=== PATIENT | male | born 1990 | race Caucasian/White ===

== ENCOUNTER 2018-05-28 18:27 | Inpatient (IN) | payer MEDICARE, MEDICAID ==
[~2018-05-28] VITALS: Ht 170.2 cm; Wt 52.6 kg
[~2018-05-28 18:27] MED LIST: DEPAK5 PO; DIVA250T4 PO; QUET400T PO
[2018-05-28] MEDS ORDERED: ONDANSETRON HCL 4MG/2ML INJ IV STA (18:39)
[2018-05-28] MEDS ORDERED: PIPERACILLIN/TAZ 3.375G PREMIX 50 ML IV ONE (18:45)
[2018-05-28] MEDS ORDERED: SODIUM CHLORIDE 0.9% 1000ML BAG (SEPSIS BOLUS) IV ONE (18:45)
[2018-05-28 19:34] LABS: HEMATOCRIT. 25.2 % (42.0-52.0); HEMOGLOBIN. 8.3 g/dL (14.0-18.0); MEAN CORPUSCULAR HEMOGLOBIN 30.8 pg (28.0-32.0); MEAN PLATELET VOLUME 7.5 fl (7.4-10.4); PLATELET 391 x1000/uL (130-400); RED CELL DISTRIBUTION WIDTH 21.1 % (11.6-14.6)
[2018-05-28 19:39] LABS: CHLORIDE 100 mEq/L (98-107)
[2018-05-28 19:40] LABS: INR 1.5; PROTHROMBIN TIME 15.1 sec (9.1-11.1)
[2018-05-28 20:32] LABS: PLATELET ESTIMATE NORMAL
[2018-05-28] MEDS ORDERED: VANCOMYCIN 1 G PREMIX 200 ML IV STA (21:48)
[2018-05-28] MEDS ORDERED: SULFAMETHOXAZOLE/TRIMETHOPRIM 800/160MG TABLET PO ONE (22:00)
[2018-05-28 22:02] LABS: CLARITY URINE CLEAR (CLEAR); COLOR URINE DARK YELLOW (YELLOW); KETONES URINE TRACE (NEGATIVE); LEUKOCYTE ESTERASE URINE NEGATIVE (NEGATIVE); NITRITE URINE NEGATIVE (NEGATIVE); OCCULT BLOOD URINE NEGATIVE (NEGATIVE); PH URINE 5.5 (4.5-8.0); PROTEIN URINE 2+ (NEGATIVE); SPECIFIC GRAVITY URINE 1.032 (1.005-1.030)
[2018-05-29 09:30] VITALS: BP 113/62
[2018-05-29] MEDS ORDERED: HYDROCODONE/ACETAMINOPHEN 5/325MG TABLET PO PRN (09:45)
[2018-05-29] MEDS ORDERED: GUAIFENESIN-DM 200MG-20MG/10ML UDC PO PRN (09:45)
[2018-05-29] MEDS ORDERED: ONDANSETRON HCL 4MG/2ML INJ IV PRN (09:45)
[2018-05-29] MEDS ORDERED: IPRATROPIUM/ALBUTEROL 0.5-3(2.5)MG/3ML NEB HHN PRN (09:45)
[2018-05-29 10:00] VITALS: BP 113/62
[2018-05-29] MEDS ORDERED: VANCOMYCIN 1250MG in DEXTROSE 5% WATER 250ML IV SCH (11:30)
[2018-05-29 11:47] VITALS: BP 110/71
[2018-05-29] MEDS ORDERED: GUAIFENESIN 600MG ER TABLET PO SCH (12:00)
[2018-05-29] MEDS ORDERED: PIPERACILLIN/TAZ 3.375G PREMIX 50 ML IV SCH (12:00)
[2018-05-29] MEDS: IPRATROPIUM/ALBUTEROL 0.5-3(2.5)MG/3ML NEB HHN SCH (13:14)
[2018-05-29] MEDS: SODIUM CHLORIDE 0.9% 1,000 ML IV SCH (13:43)
[2018-05-29] MEDS: MIDODRINE HCL 5MG TABLET PO SCH ×2 (13:44→16:34)
[2018-05-29 15:09] LABS: TOTAL IRON BINDING CAPACITY 123 ug/dL (250-450)
[2018-05-29 15:45] VITALS: BP 100/54
[2018-05-29] MEDS: NICOTINE 14MG PATCH TD SCH (16:00)
[2018-05-29] MEDS: PIPERACILLIN/TAZ 3.375G PREMIX 50 ML IV SCH (16:18)
[2018-05-29] MEDS ORDERED: SODIUM CHLORIDE 10% FOR INH 15ML VIAL NEB INH NR (17:00)
[2018-05-29 20:00] VITALS: BP 89/41
[2018-05-29] MEDS: VANCOMYCIN 1500MG in DEXTROSE 5% WATER 250ML IV SCH (22:00)
[2018-05-30] MEDS: ACETYLCYSTEINE 100MG/ML 10% VIAL 4ML INH SCH (00:20)
[2018-05-30] MEDS: IPRATROPIUM/ALBUTEROL 0.5-3(2.5)MG/3ML NEB HHN SCH ×3 (00:22→22:36)
[2018-05-30] MEDS: SODIUM CHLORIDE 0.9% 1,000 ML IV SCH ×2 (01:20→14:40)
[2018-05-30 04:00] VITALS: BP 81/47
[2018-05-30] MEDS: VANCOMYCIN 1500MG in DEXTROSE 5% WATER 250ML IV SCH ×3 (06:00→21:36)
[2018-05-30] MEDS: PIPERACILLIN/TAZ 3.375G PREMIX 50 ML IV SCH ×4 (06:00→18:00)
[2018-05-30 08:00] VITALS: BP 95/39
[2018-05-30] MEDS: ACETAMINOPHEN 325MG TABLET PO PRN (08:20)
[2018-05-30] MEDS: MIDODRINE HCL 5MG TABLET PO SCH ×3 (08:21→17:00)
[2018-05-30] MEDS: NICOTINE 14MG PATCH TD SCH (08:21)
[2018-05-30 09:33] LABS: HEMATOCRIT. 30.8 % (42.0-52.0); HEMOGLOBIN. 9.8 g/dL (14.0-18.0); MEAN CORPUSCULAR HEMOGLOBIN 30.3 pg (28.0-32.0); MEAN CORPUSCULAR VOLUME 94.9 fL (80.0-94.0); MEAN PLATELET VOLUME 7.6 fl (7.4-10.4); PLATELET 564 x1000/uL (130-400); RED BLOOD CELL COUNT 3.24 mill/uL (4.7-6.1); RED CELL DISTRIBUTION WIDTH 21.1 % (11.6-14.6)
[2018-05-30 09:39] LABS: CHLORIDE 95 mEq/L (98-107)
[2018-05-30 10:27] VITALS: BP 80/16
[2018-05-30 12:00] VITALS: BP 92/57
[2018-05-30 12:18] LABS: PLATELET ESTIMATE INCREASED
[2018-05-30 16:00] VITALS: BP 115/94
[2018-05-30] MEDS: CEFEPIME HCL 1000MG/VIAL INJ IM SCH (16:46)
[2018-05-30 20:00] VITALS: BP 85/37
[2018-05-30] MEDS: DOXYCYCLINE HYCLATE 100MG CAPSULE PO SCH (20:24)
[2018-05-31] VITALS: BP 80/16
[2018-05-31] MEDS: ACETAMINOPHEN 325MG TABLET PO PRN (00:32)
[2018-05-31] MEDS: IPRATROPIUM/ALBUTEROL 0.5-3(2.5)MG/3ML NEB HHN SCH ×6 (00:56→21:00)
[2018-05-31] MEDS: ACETYLCYSTEINE 100MG/ML 10% VIAL 4ML INH SCH ×3 (00:56→17:29)
[2018-05-31] MEDS: SODIUM CHLORIDE 0.9% 1,000 ML IV SCH ×2 (04:00→17:20)
[2018-05-31] MEDS: PIPERACILLIN/TAZ 3.375G PREMIX 50 ML IV SCH ×3 (06:00→18:00)
[2018-05-31] MEDS: VANCOMYCIN 1500MG in DEXTROSE 5% WATER 250ML IV SCH ×3 (06:00→22:00)
[2018-05-31] MEDS: NICOTINE 14MG PATCH TD SCH (09:00)
[2018-05-31] MEDS: MIDODRINE HCL 5MG TABLET PO SCH ×3 (09:00→17:00)
[2018-05-31] MEDS: CEFEPIME HCL 1000MG/VIAL INJ IM SCH (09:00)
[2018-05-31 09:09] LABS: ABSOLUTE EOSINOPHILS 0.1 x10E3/uL (0.0-0.4); ABSOLUTE LYMPHOCYTES 0.2 x10E3/uL (0.7-3.1); ABSOLUTE MONOCYTES 0.1 x10E3/uL (0.1-0.9); ABSOLUTE NEUTROPHILS 1.6 x10E3/uL (1.4-7.0); BASOPHILS 0 % (Not Estab.); HEMATOCRIT 30.9 % (37.5-51.0); HEMATOLOGY COMMENT Note: (.); HEMOGLOBIN 9.2 g/dL (13.0-17.7); IMMATURE GRANULOCYTES 1 % (Not Estab.); LYMPHOCYTES 9 % (Not Estab.); MEAN CORPUSCULAR HEMOGLOBIN 29.7 pg (26.6-33.0); MEAN CORPUSCULAR HGB CONC. 29.8 g/dL (31.5-35.7); MEAN CORPUSCULAR VOLUME 100 fL (79-97); MONOCYTES 5 % (Not Estab.); NEUTROPHILS 82 % (Not Estab.); PLATELETS 459 x10E3/uL (150-379); RED CELL DISTRIBUTION WIDTH 19.6 % (12.3-15.4); WBC 1.9 x10E3/uL (3.4-10.8)
[2018-05-31] MEDS: DOXYCYCLINE HYCLATE 100MG CAPSULE PO SCH ×2 (17:28→21:57)
[2018-05-31] MEDS: ATOVAQUONE 750 MG/5 ML ORAL.SUSP PO SCH (17:28)
[2018-05-31 17:44] LABS: HEMATOCRIT. 32.6 % (42.0-52.0); HEMOGLOBIN. 10.7 g/dL (14.0-18.0); MEAN CORPUSCULAR HEMOGLOBIN 30.8 pg (28.0-32.0); MEAN CORPUSCULAR VOLUME 94.4 fL (80.0-94.0); MEAN PLATELET VOLUME 7.6 fl (7.4-10.4); PLATELET 545 x1000/uL (130-400); RED BLOOD CELL COUNT 3.46 mill/uL (4.7-6.1); RED CELL DISTRIBUTION WIDTH 20.8 % (11.6-14.6)
[2018-05-31 17:54] LABS: CHLORIDE 95 mEq/L (98-107)
[2018-05-31 20:00] VITALS: BP 92/28
[2018-05-31 20:42] LABS: NUCLEATED RED BLOOD CELLS 2 /100 WBC; PLATELET ESTIMATE INCREASED
[2018-06-01] VITALS: BP 85/41
[2018-06-01] MEDS: ACETYLCYSTEINE 100MG/ML 10% VIAL 4ML INH SCH ×2 (00:35→08:23)
[2018-06-01 04:00] VITALS: BP 88/45
[2018-06-01] MEDS: IPRATROPIUM/ALBUTEROL 0.5-3(2.5)MG/3ML NEB HHN SCH ×4 (04:45→12:00)
[2018-06-01] MEDS: ACETAMINOPHEN 325MG TABLET PO PRN (05:44)
[2018-06-01] MEDS: PIPERACILLIN/TAZ 3.375G PREMIX 50 ML IV SCH ×3 (05:51→12:00)
[2018-06-01] MEDS: VANCOMYCIN 1500MG in DEXTROSE 5% WATER 250ML IV SCH (05:51)
[2018-06-01 06:47] LABS: BASOPHILS % 0.3 % (0.0-2.0); EOSINOPHILS % 0.5 % (0.0-5.0); HEMATOCRIT. 28.5 % (42.0-52.0); HEMOGLOBIN. 9.3 g/dL (14.0-18.0); LYMPHOCYTES % 8.8 % (20.0-50.0); MEAN CORPUSCULAR HEMOGLOBIN 30.5 pg (28.0-32.0); MEAN CORPUSCULAR VOLUME 93.4 fL (80.0-94.0); MEAN PLATELET VOLUME 7.5 fl (7.4-10.4); MONOCYTES % 2.5 % (2.0-8.0); NEUTROPHILS % 87.9 % (40.0-76.0); PLATELET 417 x1000/uL (130-400); RED BLOOD CELL COUNT 3.05 mill/uL (4.7-6.1); RED CELL DISTRIBUTION WIDTH 21.2 % (11.6-14.6)
[2018-06-01 07:00] VITALS: BP 87/53
[2018-06-01 07:21] LABS: CHLORIDE 96 mEq/L (98-107)
[2018-06-01] MEDS: ATOVAQUONE 750 MG/5 ML ORAL.SUSP PO SCH ×2 (07:50→09:14)
[2018-06-01 08:00] VITALS: BP 87/53
[2018-06-01] MEDS: CEFEPIME HCL 1000MG/VIAL INJ IM SCH ×2 (09:00→09:14)
[2018-06-01] MEDS: MIDODRINE HCL 5MG TABLET PO SCH ×3 (09:00→12:20)
[2018-06-01] MEDS: NICOTINE 14MG PATCH TD SCH ×2 (09:00→09:15)
[2018-06-01] MEDS: DOXYCYCLINE HYCLATE 100MG CAPSULE PO SCH ×2 (09:00→09:15)
[2018-06-01 12:00] VITALS: BP 111/57
[2018-06-01] MEDS ORDERED: LORAZEPAM 2MG/ML CPJ IV PRN (12:45)
[2018-06-01] MEDS ORDERED: MORPHINE SULFATE 250 MG in DEXT 5% WATER 240 ML IV PRN (13:00)
[2018-06-01 20:00] VITALS: BP 103/44
[2018-06-02] VITALS: BP 111/49
[2018-06-02] MEDS: ACETAMINOPHEN 325MG TABLET PO PRN (02:18)
[2018-06-02 04:00] VITALS: BP 99/51
[2018-06-02 09:06] LABS: ABSOLUTE EOSINOPHILS 0.1 x10E3/uL (0.0-0.4); ABSOLUTE LYMPHOCYTES 0.2 x10E3/uL (0.7-3.1); ABSOLUTE MONOCYTES 0.1 x10E3/uL (0.1-0.9); ABSOLUTE NEUTROPHILS 1.4 x10E3/uL (1.4-7.0); BASOPHILS 0 % (Not Estab.); HEMATOCRIT 35.4 % (37.5-51.0); HEMATOLOGY COMMENT Note: (.); HEMOGLOBIN 10.7 g/dL (13.0-17.7); LYMPHOCYTES 13 % (Not Estab.); MEAN CORPUSCULAR HEMOGLOBIN 30.3 pg (26.6-33.0); MEAN CORPUSCULAR HGB CONC. 30.2 g/dL (31.5-35.7); MEAN CORPUSCULAR VOLUME 100 fL (79-97); MONOCYTES 4 % (Not Estab.); NEUTROPHILS 57 % (Not Estab.); NUCLEATED RBC 5 % (0 - 0); PLATELETS 616 x10E3/uL (150-379); RBC 3.53 x10E6/uL (4.14-5.80); RED CELL DISTRIBUTION WIDTH 19.6 % (12.3-15.4); WBC 1.9 x10E3/uL (3.4-10.8)
[2018-06-02 10:10] LABS: % CD 3 POS. LYMPHOCYTES 69.9 % (57.5-86.2); % CD 4 POS. LYMPHOCYTES 7.7 % (30.8-58.5); % CD 8 POS. LYMPH 60.3 % (12.0-35.5); ABSOLUTE CD 3 140 /uL (622-2402); ABSOLUTE CD 4 HELPER 15 /uL (359-1519); ABSOLUTE CD 8 SUPPRESSOR 121 /uL (109-897); CD4/CD8 RATIO 0.13 (0.92-3.72)
[2018-06-02] MEDS ORDERED: MORPHINE SULFATE 10 MG/ML CPJ IM PRN (11:45)
[2018-06-02] MEDS ORDERED: HYDROMORPHONE HCL/PF 2MG/ML CPJ IM PRN (12:30)
[2018-06-02] MEDS ORDERED: HALOPERIDOL LACTATE 5MG/ML VIAL IM PRN (15:00)
[2018-06-02] MEDS ORDERED: LORAZEPAM 2MG/ML CPJ IV PRN (15:00)
[2018-06-02] MEDS ORDERED: LORAZEPAM 2MG/ML CPJ IM PRN (16:15)
[2018-06-05 19:06] LABS: QFT MITOGEN VALUE 1.23 IU/mL (.); QFT TB GOLD PLUS Indeterminate (Negative); QFT TB1 AG VALUE 0.99 IU/mL (.)
== END 2018-06-03 06:45 | disposition expired | DRG 974 ==
LOC: ER 18:27 → EDBEDREQ 18:58 → 6EST 23:28 → EDBEDREQ 23:30 → EDBEDREQDT 05-29 08:03 → EDBEDREQSVC 05-29 08:03 → EDBEDREQTM 05-29 08:03 → ENRESERV 05-29 08:08 → 6EST 05-30 10:34
PROVIDERS: ADMIT Internal Medicine; ATTEND Internal Medicine
DX: B20 Human immunodeficiency virus [HIV] disease (principal); A41.9 Sepsis, unspecified organism; E43 Unspecified severe protein-calorie malnutrition; J18.9 Pneumonia, unspecified organism; J96.01 Acute respiratory failure with hypoxia; E87.1 Hypo-osmolality and hyponatremia; R64 Cachexia; D68.9 Coagulation defect, unspecified; N17.9 Acute kidney failure, unspecified; A15.9 Respiratory tuberculosis unspecified; Z68.1 Body mass index [BMI] 19.9 or less, adult; Z66 Do not resuscitate; D64.9 Anemia, unspecified; L65.9 Nonscarring hair loss, unspecified; Z51.5 Encounter for palliative care; D70.9 Neutropenia, unspecified; F12.90 Cannabis use, unspecified, uncomplicated; F17.210 Nicotine dependence, cigarettes, uncomplicated; F31.9 Bipolar disorder, unspecified; R62.7 Adult failure to thrive; Z79.899 Other long term (current) drug therapy; Z88.8 Allergy status to other drugs, medicaments and biological substances; Z71.6 Tobacco abuse counseling
CPT/HCPCS: 36415; 71045; 71250; 80048; 80061; 82533; 82728; 83540; 83550; 83605; 83930; 84145; 84443; 84484; 86359; 86360; 86480; 87116; 87804; 93005; 93971; 94640; 96365; 96366; 96375; 99291; C1893; J0692; J2405; J2543; J3370; J7030; J7060; J7131; J7608; J7620